=== PATIENT | female | born 1975 | race Hispanic/Latino ===

== ENCOUNTER 2017-06-09 14:33 | Emergency (ER) | payer MEDICAID ==
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
[2017-06-09] MEDS ORDERED: TYLENOL PO ONE (20:19)
--- NOTE | 2017-06-09 21:07 | Cat Scan Report ---
FINAL REPORT PROCEDURE: CT head without contrast. TECHNIQUE: Computerized tomography of the head was performed without contrast material. HISTORY: Headache. COMPARISON: No prior studies are available for comparison. FINDINGS: The ventricles are normal in size. The paris matter and white matter appear normal. There are no mass lesions. There is no intracranial hemorrhage. There are no signs of acute infarction. The calvarium appears intact. The mastoid air cells are clear. There is mucosal thickening in the left maxillary sinus. There is some fluid in the left frontal sinus. IMPRESSION: Normal study of the brain. Sinusitis as described.
[2017-06-09 21:59] VITALS: BP 129/73
== END 2017-06-09 21:59 | disposition home or self-care (01) ==
LOC: ED 14:33
DX: S09.90XA Unspecified injury of head, initial encounter (principal); Z87.891 Personal history of nicotine dependence; Z88.6 Allergy status to analgesic agent; W18.2XXA Fall in (into) shower or empty bathtub, initial encounter; Y93.89 Activity, other specified; Y92.002 Bathroom of unspecified non-institutional (private) residence as the place of occurrence of the external cause; Y99.8 Other external cause status
CPT/HCPCS: 70450; 99283